=== PATIENT | female | born 1955 | race Caucasian/White ===

== ENCOUNTER → 2024-07-09 | Day surgery (SDC) | payer MEDICARE, OTHER ==
[~2024-07-09] MED LIST: ACETAMINOPHEN 1000 MG/100 ML IV ONE; BUPIVACAINE HCL 0.5% INJ 30 ML VIAL INJ ONE; DEXAMETHASONE SOD PHOS INJ 4 MG/ML SDV ONE; FENTANYL CITRATE/PF 100MCG/2 ML INJ ONE; HYDRALAZINE HCL 20 MG/ML VIAL ONE; HYDREA500 MG PO; LIDOCAINE HCL 2% LOCAL INJ 5 ML SDV VIAL INJ ONE; LIPITOR10 MG PO; NEOSTIGMINE 1 MG/ML 10ML VIAL ONE; ONDANSETRON HCL INJ 2MG/ML 2ML 2 MG/ML VIAL ONE; PROPOFOL IV EMULSION 10 MG/ML 20 ML VIAL ONE; SEVOFLURANE INHAL SOLN 250 ML PEN BTL ONE; SPIRONOLACTONE25 MG PO
[2024-07-09] MEDS: CEFAZOLIN SODIUM 2 GM ONE (06:12)
[2024-07-09] MEDS: LACTATED RINGER'S 1,000 ML ONE (06:13)
[2024-07-09 09:15] VITALS: TEMP 97.4
[2024-07-09 10:15] VITALS: BP 132/89; PULSE 64; RESP 19; O2SAT 99
== END | disposition home or self-care (01) ==
LOC: OR 05:05
PROVIDERS: ATTEND Podiatrist Foot Surgery
DX: M67.472 Ganglion, left ankle and foot (principal); D23.72 Other benign neoplasm of skin of left lower limb, including hip; M77.8 Other enthesopathies, not elsewhere classified; I10 Essential (primary) hypertension; M06.9 Rheumatoid arthritis, unspecified; M19.90 Unspecified osteoarthritis, unspecified site; M32.9 Systemic lupus erythematosus, unspecified; E78.5 Hyperlipidemia, unspecified; C92.10 Chronic myeloid leukemia, BCR/ABL-positive, not having achieved remission; D64.9 Anemia, unspecified; Z01.810 Encounter for preprocedural cardiovascular examination; Z01.818 Encounter for other preprocedural examination; Z79.899 Other long term (current) drug therapy
CPT/HCPCS: 11406; 28090; 28104; 71046; 88304; 93005; J0131; J0360; J1100; J2001; J2405; J2704; J2710; J3010; J7121